=== PATIENT | female | born 1935 | race Caucasian/White ===

== ENCOUNTER → 2018-06-09 11:35 | Outpatient (CLI) | payer MEDICARE, OTHER, SELFPAY ==
[2018-06-09 12:26] LABS: Alanine Aminotransferase 30 IU/L (9-52); Albumin 4.3 g/dL (3.5-5.0); Albumin Globulin Ratio 1.3 (1.0-2.8); Alkaline Phosphatase 60 U/L (38-126); Aspartate Aminotransferase 25 IU/L (14-36); BUN Creatinine Ratio 35.4 (6-22); Bilirubin Total 0.8 mg/dL (0.2-1.3); Blood Urea Nitrogen 46 mg/dL (7-17); Calcium 10.1 mg/dL (8.4-10.2); Carbon Dioxide 32 mmol/L (22-32); Chloride 102 mmol/L (98-107); Estimated Glomerular Filt Rate 39.1 mL/min (>60); Globulin 3.2 g/dL (1.7-4.1); Glucose 110 mg/dL (80-110); HEMOLYSIS < 15 (0-50); Potassium 4.1 mmol/L (3.4-5.1); Sodium 145 mmol/L (137-145); Total Protein 7.5 g/dL (6.3-8.2)
== END ==
PROVIDERS: PCP Internal Medicine; Visit Provider Internal Medicine
DX: I10 Essential (primary) hypertension (principal); N18.2 Chronic kidney disease, stage 2 (mild)
CPT/HCPCS: 36415; 80053

== ENCOUNTER → 2019-06-04 11:04 | Outpatient (CLI) | payer MEDICARE, OTHER, SELFPAY ==
[2019-06-04 11:58] LABS: Alanine Aminotransferase 27 IU/L (9-52); Albumin 4.2 g/dL (3.5-5.0); Albumin Globulin Ratio 1.2 (1.0-2.8); Alkaline Phosphatase 78 U/L (38-126); Aspartate Aminotransferase 27 IU/L (14-36); BUN Creatinine Ratio 38.3 (6-22); Bilirubin Total 0.7 mg/dL (0.2-1.3); Blood Urea Nitrogen 46 mg/dL (7-17); Calcium 9.8 mg/dL (8.4-10.2); Carbon Dioxide 28 mmol/L (22-32); Chloride 102 mmol/L (98-107); Cholesterol 168 mg/dL (140-199); Estimated Glomerular Filt Rate 42.8 mL/min (>60); Globulin 3.4 g/dL (1.7-4.1); Glucose 114 mg/dL (80-110); HDL Cholesterol 46 mg/dL (40-60); HEMOLYSIS < 15 (0-50); LDL Cholesterol Calculated 86 mg/dL (<100); Potassium 3.5 mmol/L (3.4-5.1); Sodium 141 mmol/L (137-145); Total Protein 7.6 g/dL (6.3-8.2); Triglycerides 182 mg/dL (35-150)
== END ==
PROVIDERS: PCP Internal Medicine; Visit Provider Internal Medicine
DX: E78.5 Hyperlipidemia, unspecified (principal); I10 Essential (primary) hypertension; N18.2 Chronic kidney disease, stage 2 (mild)
CPT/HCPCS: 36415; 80053; 80061

== ENCOUNTER → 2021-03-13 11:18 | Outpatient (CLI) | payer MEDICARE, OTHER, SELFPAY ==
[2021-03-13 12:21] LABS: Alanine Aminotransferase 19 IU/L (<35); Albumin 4.2 g/dL (3.5-5.0); Albumin Globulin Ratio 1.3 (1.0-2.8); Alkaline Phosphatase 81 U/L (38-126); Aspartate Aminotransferase 28 IU/L (14-36); BUN Creatinine Ratio 31.9 (6-22); Bilirubin Total 0.7 mg/dL (0.2-1.3); Blood Urea Nitrogen 43 mg/dL (7-17); Carbon Dioxide 29 mmol/L (22-32); Chloride 104 mmol/L (98-107); Cholesterol 198 mg/dL (140-199); Estimated Glomerular Filt Rate 37.2 mL/min (>60); Globulin 3.2 g/dL (1.7-4.1); Glucose 109 mg/dL (80-110); HDL Cholesterol 51 mg/dL (40-60); HEMOLYSIS < 15 (0-50); LDL Cholesterol Calculated 105 mg/dL (<100); Potassium 3.8 mmol/L (3.4-5.1); Sodium 141 mmol/L (137-145); Total Protein 7.4 g/dL (6.3-8.2); Triglycerides 208 mg/dL (35-150)
== END ==
PROVIDERS: PCP Internal Medicine; Referring Provider Internal Medicine; Visit Provider Internal Medicine
DX: E78.5 Hyperlipidemia, unspecified (principal); I10 Essential (primary) hypertension; N18.2 Chronic kidney disease, stage 2 (mild)
CPT/HCPCS: 36415; 80053; 80061

== ENCOUNTER → 2021-08-25 15:31 | Outpatient (CLI) | payer MEDICARE, OTHER, SELFPAY ==
[2021-08-25 17:14] LABS: Erythrocyte Sedimentation Rate 31 MM/HR (0-20)
[2021-08-25 17:30] LABS: Blood Urea Nitrogen 39 mg/dL (7-17); C-Reactive Protein Quant 2.4 mg/dL (<1.0); Calcium 9.6 mg/dL (8.4-10.2); Carbon Dioxide 35 mmol/L (22-32); Chloride 99 mmol/L (98-107); Estimated Glomerular Filt Rate 38.8 mL/min (>60); Glucose 100 mg/dL (80-110); HEMOLYSIS < 15 (0-50); Potassium 3.8 mmol/L (3.4-5.1); Sodium 138 mmol/L (137-145); Uric Acid 7.9 mg/dL (2.5-6.2)
== END ==
PROVIDERS: PCP Internal Medicine; Referring Provider Internal Medicine; Visit Provider Internal Medicine
DX: M10.9 Gout, unspecified (principal)
CPT/HCPCS: 36415; 80048; 84550; 85651; 86140

== ENCOUNTER → 2022-07-09 15:39 | Outpatient (CLI) | payer MEDICARE, OTHER, SELFPAY ==
[2022-07-09 18:25] LABS: Alanine Aminotransferase 37 IU/L (<35); Albumin 4.1 g/dL (3.5-5.0); Alkaline Phosphatase 119 U/L (38-126); Aspartate Aminotransferase 38 IU/L (14-36); BUN Creatinine Ratio 28.7 (6-22); Bilirubin Total 0.7 mg/dL (0.2-1.3); Blood Urea Nitrogen 39 mg/dL (7-17); Calcium 9.1 mg/dL (8.4-10.2); Carbon Dioxide 25 mmol/L (22-32); Chloride 104 mmol/L (98-107); Estimated Glomerular Filt Rate 38 mL/min (>60); Glucose 157 mg/dL (80-110); HEMOLYSIS < 15 (0-50); Potassium 3.4 mmol/L (3.4-5.1); Sodium 140 mmol/L (137-145); Total Protein 7.6 g/dL (6.3-8.2)
[2022-07-09 18:26] LABS: Albumin Globulin Ratio 1.2 (1.0-2.8); Globulin 3.5 g/dL (1.7-4.1)
== END ==
PROVIDERS: PCP Internal Medicine; Referring Provider Internal Medicine; Visit Provider Internal Medicine
DX: E78.5 Hyperlipidemia, unspecified (principal); I10 Essential (primary) hypertension; N18.31 Chronic kidney disease, stage 3a
CPT/HCPCS: 36415; 80053

== ENCOUNTER → 2023-10-13 16:15 | Outpatient (CLI) | payer MEDICARE, OTHER, SELFPAY ==
[2023-10-13 18:22] LABS: Alanine Aminotransferase 25 IU/L (<35); Albumin Globulin Ratio 1.1 (1.0-2.8); Alkaline Phosphatase 160 U/L (38-126); Aspartate Aminotransferase 46 IU/L (14-36); Bilirubin Total 1.6 mg/dL (0.2-1.3); Blood Urea Nitrogen 35 mg/dL (7-17); Calcium 9.7 mg/dL (8.4-10.2); Carbon Dioxide 24 mmol/L (22-32); Chloride 102 mmol/L (98-107); Estimated Glomerular Filt Rate 36 mL/min (>60); Globulin 3.8 g/dL (1.7-4.1); Glucose 95 mg/dL (80-110); HEMOLYSIS < 15 (0-50); Potassium 3.5 mmol/L (3.4-5.1); Sodium 139 mmol/L (137-145); Total Protein 7.8 g/dL (6.3-8.2)
[2023-10-13 18:45] LABS: Free T4, Direct Thyroxine 1.57 ng/dL (0.78-2.19)
[2023-10-13 18:59] LABS: Thyroid Stimulating Hormone 2.21 uIU/mL (0.47-4.68)
== END ==
PROVIDERS: PCP Internal Medicine; Referring Provider Internal Medicine; Visit Provider Internal Medicine
DX: N18.31 Chronic kidney disease, stage 3a (principal); E78.5 Hyperlipidemia, unspecified; E03.9 Hypothyroidism, unspecified; I12.9 Hypertensive chronic kidney disease with stage 1 through stage 4 chronic kidney disease, or unspecified chronic kidney disease
CPT/HCPCS: 36415; 80053; 84439; 84443

== ENCOUNTER 2023-11-05 09:01 | Observation (INO) | payer MEDICARE, OTHER, SELFPAY ==
[2023-11-05] VITALS (20 sets, daily range): BP systolic 98–147; BP diastolic 50–84; PULSE 61–90; RESP 16–56; TEMP 36.1–36.6; O2SAT 90–95; BMI 31.8
--- NOTE | 2023-11-05 09:06 | ED.GENADULT ---
HPI - General Adult General Chief complaint: Back Pain/Injury Stated complaint: upper back pain Time Seen by Provider: 11/05/23 09:06 History of Present Illness HPI narrative: 88-year-old female with history of chronic renal failure, hypertension, hyperlipidemia, osteopenia presents with upper back pain. She states she was shopping yesterday when she developed upper back pain that felt like a muscle strain to her, that has been constant since, worse with movement. She has had similar pain in the past in this area. She denies prior surgeries to this area, any trauma, blood thinners, focal numbness or weakness, any other back pain, any chest pain, any abdominal pain, any flank pain, head or neck pain, shortness of breath, difficulty walking or talking or eating, lightheadedness or passing out, bleeding, or any pain medications taken at home. Grandson brought her. She lives alone. Related Data Home Medications Medication Instructions Recorded Confirmed multivitamin (Multiple Vitamins 1 tab PO QDAY ##0 11/30/16 10/13/23 tablet) vit C 250 mg-vit E 90 mg-zinc 40 1 tab PO ##0 11/30/16 10/13/23 mg-copper 1 [id number] capsule (PreserVision AREDS-2) Previous Rx's Medication Instructions Recorded hydrochlorothiazide 50 mg tablet 50 mg PO DAILY #90 tabs 07/07/23 metoprolol succinate 100 mg 100 mg PO DAILY #90 tabs 09/22/23 tablet,extended release 24 hr furosemide 20 mg tablet 20 mg PO DAILY #90 tabs 10/13/23 potassium chloride 8 mEq 8 meq PO DAILY #90 tabs 10/13/23 tablet,extended release simvastatin 40 mg tablet (Zocor) 20 mg (1/2 x 40 mg) PO Q DAY #45 10/13/23 tabs Allergies Allergy/AdvReac Type Severity Reaction Status Date / Time No Known Drug Allergies Allergy Verified 10/13/23 15:38 Review of Systems Review of Systems Narrative: Constitutional: no fever, no chills Eyes: no visual disturbance, no discharge Ears, Nose, Mouth, Throat: no rhinorrhea, no sore throat Cardiovascular: no chest pain, no palpitations Respiratory: no cough, no shortness of breath Gastrointestinal: no abdominal pain, no vomiting, no diarrhea Genitourinary: no dysuria, no hematuria Musculoskeletal: + back pain, no neck stiffness Skin: no rash, no wound Neurological: no focal weakness, no focal numbness Patient History Medical History Body mass index (BMI) of 40.0 to 44.9 in adult (11/21/17) Chronic renal failure, stage 3a Hearing loss Hyperlipidemia (11/22/11) Hypertension (11/22/11) Macular degeneration Osteopenia (11/22/11) Surgical History History of cataract removal with insertion of prosthetic lens (07/20/11) History of hip replacement (~2010) History of hip replacement (07/18/12) Status post hysterectomy Social History marital status: number of children: 4 household members: none lives independently: Yes caregiver/support person: No housing: house pets and animals: Yes education level: high school occupational status: other 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[employer]: [employer] travel history: over 6 months ago leisure activities: other Smoking Status: Never smoker Tobacco: How many years used: 0 quit status: quit date established second hand exposure: Yes (When first to .) alcohol intake: current substance use type: does not use Smoking Status: Never smoker Exam Narrative Exam Narrative: Const: Appears uncomfortable, non toxic appearing; anxious, remains conversant, pleasant Eyes: PERRLA, EOMI ENT: mucous membranes moist Neck: supple, non-tender Resp: no respiratory distress, clear to auscultation bilaterally Card: regular rate and rhythm, no murmurs Abd: non tender diffusely, no rigidity or rebound or guarding Back: There is focal upper and mid paraspinal T-spine tenderness, with no bony tenderness; no erythema, induration, fluctuance, lesions; no L spine tenderness; no CVA tenderness bilaterally Extrem: no deformities, no swelling bilateral lower extremities, 2+ distal pulses all extremities Neuro: ANOx4, manager risk management 2 through 12 intact, intact sensation and strength all extremities, no clonus bilateral lower extremities, normal coordination Skin: no rash, warm and dry Initial Vital Signs Initial Vital Signs: Vital Signs Pulse Rate 77 11/05/23 09:10 Blood Pressure 118/75 11/05/23 09:10 Pulse Oximetry 92 11/05/23 09:10 Course Course Course Narrative: This presentation is most suggestive of musculoskeletal back pain with strain or sprain, though I have considered broad differential including but not limited to spine fracture, ACS, pneumothorax, vascular dissection among others. Vascular dissection would seem extremely unlikely at this time. Currently, no neurovascular deficits, with epidural hematoma or abscess, spinal cord injury also extremely unlikely clinically. I will still obtain chest x-ray, T-spine x-ray, CBC, CMP, troponin, EKG while treating pain and closely reassessing. I am giving Tylenol, Flexeril, lidocaine patch. EKG shows normal sinus rhythm with right bundle branch block, without recent for comparison, no clear acute ischemia, with QTC prolonged in the setting of bundle-branch block. We will trend this. Repeat EKG shows normal sinus rhythm on my assessment with maintained right bundle branch block, morphology overall similar to prior today, no clear STEMI on my review, with QT prolongation in the setting of bundle-branch block. CBC with neutrophilic leukocytosis, elevated hemoglobin, no thrombocytopenia. No recent for comparison. Leukocytosis could be pain related, in the setting of no clear infection. Troponin within normal limits. Chemistry with mild hypokalemia, some elevation in creatinine though overall in similar range to prior, with elevated BUN and poor p.o. intake possible. EGFR is still above 30. Hyperglycemia present. I do note AST, bilirubin, alk-phos elevations with no ALT elevation and no abdominal pain or tenderness. I am going to obtain CT chest, abdomen, pelvis to assess further, as a biliary cause her pain such as choledocholithiasis, cholecystitis, biliary colic is possible, but so are other causes for pain such as dissection, pneumonia, other intra-abdominal infection. Patient having improvement in pain prior to CT, appearing more comfortable. Chest x-ray and T-spine x-ray without clear findings to explain symptoms per Radiology reads. US abd also obtained and shows: FINDINGS: Liver: Liver is normal in size and homogeneous in echotexture. Hyperechoic nodule in the right hepatic lobe measures 2.3 cm, probable hemangioma. Gallbladder: No gallstones. No wall thickening. No pericholecystic edema. Negative sonographic Zhao's sign. Biliary ducts: Intrahepatic bile ducts are non-dilated. Extrahepatic bile duct caliber is within normal limits. Financial Advisor Trainee overestimated CBD diameter on images. Pancreas: Visualized portions of the pancreas are sonographically normal. Miscellaneous: No free abdominal fluid. IMPRESSION: Probable small right hepatic hemangioma. Otherwise unremarkable ultrasound of the right upper quadrant. No cholelithiasis. Approved by: Mayur Vieira M.D. on 11/05/2023 at 10:[address] imaging below, which I agree with on my independent review: FINDINGS: Chest: Cardiovascular: Heart size is enlarged, and the right atrium and ventricle is dilated. Reflux of contrast into the intrahepatic IVC as well as IVC distension are all consistent with right heart failure. Dense coronary artery vascular calcification Lungs and pleural spaces: Patchy bilateral geographic ground-glass opacity consistent with pulmonary edema. No pleural effusions Lymph nodes: No mediastinal, hilar or axillary adenopathy. Mediastinum: Unremarkable. No hiatal hernia. Thyroid within normal limits. Chest Wall and Bones: Unremarkable. No acute fracture. Abdomen and Pelvis: Liver: Normal in size and attenuation. No contour deformity present. Biliary system: No calcified cholelithiasis or pericholecystic inflammation. No intra or extrahepatic bile duct dilatation. Pancreas: Unremarkable without mass or inflammation evident. Spleen: Normal in size and density. Adrenals: Normal morphology and density. Reproductive system: Unremarkable as visualized. Urinary system: Normal renal size and attenuation. Left peripelvic cysts No renal calculi, hydronephrosis, or solid mass present. Urinary bladder unremarkable. Gastrointestinal system: The bowel is unremarkable with no evidence of bowel obstruction or inflammation. The stomach appears unremarkable. Multiple diverticula arise from the sigmoid colon without evidence of diverticulitis. Appendix: No findings to suggest acute appendicitis. Lymph nodes: No mesenteric or retroperitoneal adenopathy. Peritoneal spaces: No free air. No free fluid. Vasculature: Ectatic abdominal aorta with diffuse atherosclerotic vascular calcification present. Noncalcified mural plaque in the suprarenal aorta noted with plaque ulceration. Abdominal wall: Abdominal wall intact without evidence of ventral or inguinal hernias. Musculoskeletal: Normal bone mineralization. Degenerative disc disease and arthropathy noted in lower lumbar spine. No acute fractures. Bilateral hip prosthesis limits assessment of several images in the pelvis IMPRESSION: 1. Cardiomegaly with evidence of right heart failure and pulmonary edema. No pleural effusion 2. Unstable appearing suprarenal aortic mural atherosclerotic plaque with irregular ulceration Approved by: Mayur Vieira M.D. on 11/05/2023 at 10:55 Repeat troponin reassuring. At this juncture, while musculoskeletal cause is possible for pain, on my reassessment patient's pain now seems less defined. She also seems more dyspneic, with evidence of pulmonary edema and right heart failure as above, along with evidence of CAD. This is concerning to me for potential ACS. I am giving aspirin and Lasix and discussed with patient my recommendation for admission for more assessment. I spoke with Dr. Howe, reviewing case on phone. Per our discussion, I will speak with Cardiology then update her. I spoke with Dr. Norwood of Cardiology [facility], reviewing case on phone. She recommends switching HCTZ to amlodipine or isosorbide to see if this helps with the pain. I will trial NTG here. She agrees with admission and reassessment. Echo would be reasonable. She is comfortable with us admitting patient to [facility]. I spoke with Dr. Howe who kindly accepted patient. Patient being admitted in stable condition. TTE ordered. Admitting to [facility] obs. Orders Ordered: ED Orders 11/05/23 09:15 XR chest 1V Stat XR thoracic spine 2V Stat 11/05/23 09:18 EKG-12 Lead Stat 11/05/23 09:20 CBC Auto Diff [Complete Blood Count AUTO DIFF] Stat CMP [Comprehensive Metabolic Panel] Stat Troponin I Stat 11/05/23 10:04 EKG-12 Lead Stat 11/05/23 10:05 CT angio chest abdomen pelvis Stat 11/05/23 11:04 US abdomen limited Stat 11/05/23 11:38 Troponin I Stat 11/05/23 12:49 EC echo limited Stat Discontinued Medications Acetaminophen (Acetaminophen 325 Mg Tablet) 975 mg PO NOW ONE Stop: 11/05/23 09:16 Last Admin: 11/05/23 09:22 Dose: 975 mg Documented By: CTS Aspirin (Aspirin 81 Mg Chew Tab) 324 mg PO NOW ONE Stop: 11/05/23 12:23 Last Admin: 11/05/23 12:32 Dose: 324 mg Documented By: BS Cyclobenzaprine HCl (Cyclobenzaprine 10 Mg Tablet) 10 mg PO NOW ONE Stop: 11/05/23 09:16 Last Admin: 11/05/23 09:22 Dose: 10 mg Documented By: CTS Furosemide (Furosemide 40 Mg/4 Ml Vial) 40 mg IV NOW ONE Stop: 11/05/23 12:23 Last Admin: 11/05/23 12:32 Dose: 20 mg Documented By: BS Lidocaine (Lidocaine 5% Patch) 1 each TOP NOW ONE Stop: 11/05/23 09:16 Last Admin: 11/05/23 09:22 Dose: 1 each Documented By: CTS Nitroglycerin (Nitroglycerin 0.4 Mg Sl Tab) 0.4 mg SL NOW ONE Stop: 11/05/23 12:44 Last Admin: 11/05/23 12:55 Dose: 0.4 mg Vital Signs Vital signs: Vital Signs - 8 hr 11/05/23 09:10 11/05/23 09:10 11/05/23 09:11 Temperature 97.9 F Pulse Rate 77 78 Respiratory Rate 16 Blood Pressure 118/75 118/75 Pulse Oximetry 92 94 Oxygen Delivery Method Room Air 11/05/23 09:38 11/05/23 09:40 11/05/23 09:40 Temperature Pulse Rate 68 69 Respiratory Rate Blood Pressure 140/68 Pulse Oximetry 92 92 Oxygen Delivery Method 11/05/23 10:00 11/05/23 10:00 11/05/23 10:49 Temperature Pulse Rate 63 63 Respiratory Rate Blood Pressure 129/65 Pulse Oximetry 92 93 Oxygen Delivery Method 11/05/23 10:50 11/05/23 10:50 11/05/23 12:55 Temperature Pulse Rate 65 65 Respiratory Rate Blood Pressure 121/77 144/76 H Pulse Oximetry 92 Oxygen Delivery Method Medical Decision Making Lab Data 11/05/23 09:20 11/05/23 09:20 Labs: Lab Results 11/05/23 11/05/23 Range/Units 09:20 11:38 WBC 12.7 H (4.5-11.0) X10^3/uL RBC 5.49 H (4.0-5.2) X10^6/uL Hgb 17.5 H (12.0-16.0) g/dL Hct 52.2 H (36-46) % MCV 95.2 (80-100) fL MCH 31.9 (26-34) PG MCHC 33.5 (30-36) % RDW 15.2 H (11.6-14.8) % Plt Count 161 (150-400) X10^3/uL Neut % (Auto) 81.6 H (50-75) % Lymph % (Auto) 6.8 L (25-40) % Posey % (Auto) 11.1 (3-14) % Eos % (Auto) 0.1 L (2-4) % Baso % (Auto) 0.4 (0-2) % Neut # (Auto) 93254 H (7980-5944) /uL Lymph # (Auto) 900 L (0727-5575) /uL Posey # (Auto) 1400 H (0-900) /uL Eos # (Auto) 0 (0-450) /uL Baso # (Auto) 0 (0-100) /uL Sodium 137 (137-145) mmol/L Potassium 3.3 L (3.4-5.1) mmol/L Chloride 100 (98-107) mmol/L Carbon Dioxide 28 (22-32) mmol/L BUN 48 H (7-17) mg/dL Creatinine 1.55 H (0.52-1.04) mg/dL Estimated GFR 32 L (>60) mL/min BUN/Creatinine Ratio 31.0 H (6-22) Glucose 214 H (80-110) mg/dL Calcium 10.1 (8.4-10.2) mg/dL Total Bilirubin 2.4 H (0.2-1.3) mg/dL AST 51 H (14-36) IU/L ALT 34 (<35) IU/L Alkaline Phosphatase 155 H (38-126) U/L Troponin I 0.024 0.023 (0.01-0.034) ng/mL Total Protein 8.5 H (6.3-8.2) g/dL Albumin 4.3 (3.5-5.0) g/dL Globulin 4.2 H (1.7-4.1) g/dL Albumin/Globulin Ratio 1.0 (1.0-2.8) Discharge Plan Departure Patient Disposition: Admitted As Inpatient Clinical Impression: Back pain Admit Date/Time: 11/05/23 12:55 Admit Provider: Christiane Rosales
--- NOTE | 2023-11-05 09:15 | DI.RAD.S_ITS ---
PROCEDURE: XR CHEST 1V INDICATIONS: upper back pain TECHNIQUE: One view of the chest was acquired. COMPARISON: None. FINDINGS: Surgical changes and devices: None. Lungs and pleura: Lungs are clear. No pleural effusions or pneumothorax. Mediastinum: Heart size enlarged. Moderate vascular congestion noted. Bones and chest wall: No suspicious bony lesions. Overlying soft tissues appear unremarkable. IMPRESSION: Cardiomegaly and moderate vascular congestion Approved by: Mayur Vieira M.D. on 11/05/2023 at 9:19
--- NOTE | 2023-11-05 09:15 | DI.RAD.S_ITS ---
PROCEDURE: XR THORACIC SPINE 2V INDICATIONS: upper back pain TECHNIQUE: 3 views of the thoracic spine were acquired. COMPARISON: None. FINDINGS: Bones: No fractures or dislocations. No suspicious bony lesions. 12 pairs of ribs are noted, and appear intact where visualized. Soft tissues: No paravertebral stripe thickening. IMPRESSION: No acute bony abnormality. Approved by: Mayur Vieira M.D. on 11/05/2023 at 9:20
[2023-11-05] MEDS: ACETAMINOPHEN 325 MG TABLET 975 MG PO (09:22)
[2023-11-05] MEDS: LIDOCAINE 5% PATCH 1 EACH TOP (09:22)
[2023-11-05] MEDS: CYCLOBENZAPRINE 10 MG TABLET PO (09:22)
[2023-11-05 09:24] LABS: Add Manual Diff / Slide Review NO; Basophils Absolute Auto 0 /uL (0-100); Basophils Percent Auto 0.4 % (0-2); Eosinophils Absolute Auto 0 /uL (0-450); Eosinophils Percent Auto 0.1 % (2-4); Hematocrit 52.2 % (36-46); Hemoglobin 17.5 g/dL (12.0-16.0); Lymphocytes Absolute Auto 900 /uL (1100-4500); Lymphocytes Percent Auto 6.8 % (25-40); Mean Corpuscular HGB Conc 33.5 % (30-36); Mean Corpuscular Hemoglobin 31.9 PG (26-34); Mean Corpuscular Volume 95.2 fL (80-100); Monocytes Absolute Auto 1400 /uL (0-900); Monocytes Percent Auto 11.1 % (3-14); Neutrophils Absolute Auto 10300 /uL (1500-7000); Neutrophils Percent Auto 81.6 % (50-75); Platelet Count 161 X10^3/uL (150-400); Red Blood Cell Count 5.49 X10^6/uL (4.0-5.2); Red Cell Distribution Width 15.2 % (11.6-14.8); White Blood Cell Count 12.7 X10^3/uL (4.5-11.0)
[2023-11-05 09:40] LABS: Alanine Aminotransferase 34 IU/L (<35); Albumin 4.3 g/dL (3.5-5.0); Alkaline Phosphatase 155 U/L (38-126); Aspartate Aminotransferase 51 IU/L (14-36); Bilirubin Total 2.4 mg/dL (0.2-1.3); Blood Urea Nitrogen 48 mg/dL (7-17); Calcium 10.1 mg/dL (8.4-10.2); Carbon Dioxide 28 mmol/L (22-32); Chloride 100 mmol/L (98-107); Estimated Glomerular Filt Rate 32 mL/min (>60); Globulin 4.2 g/dL (1.7-4.1); Glucose 214 mg/dL (80-110); HEMOLYSIS < 15 (0-50); Potassium 3.3 mmol/L (3.4-5.1); Sodium 137 mmol/L (137-145); Total Protein 8.5 g/dL (6.3-8.2)
[2023-11-05 09:51] LABS: Troponin I 0.024 ng/mL (0.01-0.034)
--- NOTE | 2023-11-05 10:05 | DI.CT.S_ITS ---
PROCEDURE: CT ANGIO CHEST ABDOMEN PELVIS INDICATIONS: upper back pain, assess for dissection, also biliary causes TECHNIQUE: Precontrast 5 mm thick sections acquired from the lung apices to the iliac crests. After the administration of intravenous contrast, 2.5 mm thick sections again acquired from the lung apices to the iliac crests. Maximum intensity projection (MIP) oblique sagittal and coronal reformats were then acquired. For radiation dose reduction, the following was used: automated exposure control. COMPARISON: None. FINDINGS: Chest: Cardiovascular: Heart size is enlarged, and the right atrium and ventricle is dilated. Reflux of contrast into the intrahepatic IVC as well as IVC distension are all consistent with right heart failure. Dense coronary artery vascular calcification Lungs and pleural spaces: Patchy bilateral geographic ground-glass opacity consistent with pulmonary edema. No pleural effusions Lymph nodes: No mediastinal, hilar or axillary adenopathy. Mediastinum: Unremarkable. No hiatal hernia. Thyroid within normal limits. Chest Wall and Bones: Unremarkable. No acute fracture. Abdomen and Pelvis: Liver: Normal in size and attenuation. No contour deformity present. Biliary system: No calcified cholelithiasis or pericholecystic inflammation. No intra or extrahepatic bile duct dilatation. Pancreas: Unremarkable without mass or inflammation evident. Spleen: Normal in size and density. Adrenals: Normal morphology and density. Reproductive system: Unremarkable as visualized. Urinary system: Normal renal size and attenuation. Left peripelvic cysts No renal calculi, hydronephrosis, or solid mass present. Urinary bladder unremarkable. Gastrointestinal system: The bowel is unremarkable with no evidence of bowel obstruction or inflammation. The stomach appears unremarkable. Multiple diverticula arise from the sigmoid colon without evidence of diverticulitis. Appendix: No findings to suggest acute appendicitis. Lymph nodes: No mesenteric or retroperitoneal adenopathy. Peritoneal spaces: No free air. No free fluid. Vasculature: Ectatic abdominal aorta with diffuse atherosclerotic vascular calcification present. Noncalcified mural plaque in the suprarenal aorta noted with plaque ulceration. Abdominal wall: Abdominal wall intact without evidence of ventral or inguinal hernias. Musculoskeletal: Normal bone mineralization. Degenerative disc disease and arthropathy noted in lower lumbar spine. No acute fractures. Bilateral hip prosthesis limits assessment of several images in the pelvis IMPRESSION: 1. Cardiomegaly with evidence of right heart failure and pulmonary edema. No pleural effusion 2. Unstable appearing suprarenal aortic mural atherosclerotic plaque with irregular ulceration Approved by: Mayur Vieira M.D. on 11/05/2023 at 10:55
--- NOTE | 2023-11-05 11:04 | DI.US.S_ITS ---
PROCEDURE: US ABDOMEN LIMITED INDICATIONS: back pain TECHNIQUE: Real-time scanning was performed of the abdominal and retroperitoneal organs, with image documentation. COMPARISON: [facility], CT, CT ANGIO CHEST ABDOMEN PELVIS, 11/05/2023, 10:14. FINDINGS: Liver: Liver is normal in size and homogeneous in echotexture. Hyperechoic nodule in the right hepatic lobe measures 2.3 cm, probable hemangioma. Gallbladder: No gallstones. No wall thickening. No pericholecystic edema. Negative sonographic Zhao's sign. Biliary ducts: Intrahepatic bile ducts are non-dilated. Extrahepatic bile duct caliber is within normal limits. Industrial Nurse overestimated CBD diameter on images. Pancreas: Visualized portions of the pancreas are sonographically normal. Miscellaneous: No free abdominal fluid. IMPRESSION: Probable small right hepatic hemangioma. Otherwise unremarkable ultrasound of the right upper quadrant. No cholelithiasis. Approved by: Mayur Vieira M.D. on 11/05/2023 at 10:42
[2023-11-05 12:15] LABS: Troponin I 0.023 ng/mL (0.01-0.034)
[2023-11-05] MEDS: FUROSEMIDE 40 MG/4 ML VIAL IV (12:32)
[2023-11-05] MEDS: ASPIRIN 81 MG CHEW TAB 324 MG PO (12:32)
[2023-11-05] MEDS: NITROGLYCERIN 0.4 MG SL TAB SL (12:55)
--- NOTE | 2023-11-05 13:24 | P.HP_ITS ---
History of Present Illness History of Present Illness Date Patient Seen: 11/05/23 Time Patient Seen: 13:24 Date of Onset of Symptoms: 11/04/23 Chief complaint: upper back pain Narrative: 88 yo F with hx of CKD stage 3a, HTN and HLD presenting initially for upper back pain that started spontaneously yesterday while grocery shopping. Initially it felt like a muscle strain to her. There was no injury or trauma that she can remember. This has persisted since then. She has had similar pain in this spot before. No numbness. weakness, chest pain, abd pain. She has not had any chest pain or shortness of breath, her only complaint today is her back pain. In the ER option to discharge home was discussed vs admission for further work up and pt prefers admission. Cardiology was consulted and recommended admission for echo and transition to amlodipine for HTN. [facility] Medical History Body mass index (BMI) of 40.0 to 44.9 in adult (11/21/17) Chronic renal failure, stage 3a Hearing loss Hyperlipidemia (11/22/11) Hypertension (11/22/11) Macular degeneration Osteopenia (11/22/11) Surgical History History of cataract removal with insertion of prosthetic lens (07/20/11) History of hip replacement (~2010) History of hip replacement (07/18/12) Status post hysterectomy Social History marital status: number of children: 4 household members: none lives independently: Yes caregiver/support person: No housing: house pets and animals: Yes education level: high school occupational status: other 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carmela/mormonism: [employer] travel history: over 6 months ago leisure activities: other Smoking Status: Never smoker Tobacco: How many years used: 0 quit status: quit date established second hand exposure: Yes (When first to .) alcohol intake: current substance use type: does not use Meds Home Medications and Allergies Home Medications Medication Instructions Recorded Confirmed Type multivitamin (Multiple Vitamins 1 tab PO QDAY ##0 11/30/16 10/13/23 History tablet) vit C 250 mg-vit E 90 mg-zinc 40 1 tab PO ##0 11/30/16 10/13/23 History mg-copper 1 [id number] capsule (PreserVision AREDS-2) hydrochlorothiazide 50 mg tablet 50 mg PO DAILY #90 tabs 07/07/23 10/13/23 Rx metoprolol succinate 100 mg 100 mg PO DAILY #90 tabs 09/22/23 10/13/23 Rx tablet,extended release 24 hr furosemide 20 mg tablet 20 mg PO DAILY #90 tabs 10/13/23 10/13/23 Rx potassium chloride 8 mEq 8 meq PO DAILY #90 tabs 10/13/23 10/13/23 Rx tablet,extended release simvastatin 40 mg tablet (Zocor) 20 mg (1/2 x 40 mg) PO Q DAY #45 10/13/23 10/13/23 Rx tabs Allergies Allergy/AdvReac Type Severity Reaction Status Date / Time No Known Drug Allergies Allergy Verified 10/13/23 15:38 Review of Systems Review of Systems Narrative: Deneis chest pain and SOB ENdorses upper back pain Denies fevers Denies leg swelling (notes that legs are smaller than than usually are right now) No HODGE Exam Vital Signs (past 8 hours): - 11/05/23 09:10 11/05/23 09:10 11/05/23 09:11 Temperature 97.9 F Pulse Rate 77 78 Respiratory Rate 16 Blood Pressure 118/75 118/75 Pulse Oximetry 92 94 Oxygen Delivery Method Room Air 11/05/23 09:38 11/05/23 09:40 11/05/23 09:40 Temperature Pulse Rate 68 69 Respiratory Rate Blood Pressure 140/68 Pulse Oximetry 92 92 Oxygen Delivery Method 11/05/23 10:00 11/05/23 10:00 11/05/23 10:49 Temperature Pulse Rate 63 63 Respiratory Rate Blood Pressure 129/65 Pulse Oximetry 92 93 Oxygen Delivery Method 11/05/23 10:50 11/05/23 10:50 11/05/23 11:00 Temperature Pulse Rate 65 66 Respiratory Rate 56 H Blood Pressure 121/77 Pulse Oximetry 92 91 Oxygen Delivery Method 11/05/23 11:00 11/05/23 11:30 11/05/23 11:30 Temperature Pulse Rate 63 Respiratory Rate 39 H Blood Pressure 127/84 124/75 Pulse Oximetry 91 Oxygen Delivery Method 11/05/23 12:00 11/05/23 12:01 11/05/23 12:01 Temperature Pulse Rate 64 64 Respiratory Rate 37 H 32 H Blood Pressure 98/53 L Pulse Oximetry 91 91 Oxygen Delivery Method 11/05/23 12:30 11/05/23 12:30 11/05/23 12:55 Temperature Pulse Rate 64 65 Respiratory Rate 33 H Blood Pressure 106/62 144/76 H Pulse Oximetry 91 Oxygen Delivery Method 11/05/23 12:55 11/05/23 12:55 11/05/23 13:00 Temperature Pulse Rate 65 66 Respiratory Rate 36 H 34 H Blood Pressure 144/76 H Pulse Oximetry 91 93 Oxygen Delivery Method Room Air 11/05/23 13:00 Temperature Pulse Rate Respiratory Rate Blood Pressure 147/82 H Pulse Oximetry Oxygen Delivery Method Oxygen Delivery Method Room Air Narrative Exam Narrative: GEN: Healthy appearing, well-developed, NAD. Has difficulty hearing but when speaking loudly able to carry conversation without difficulty PSYCH: Good Judgment. AOx3. Normal memory, mood, and affect HEENT: -Head: NC/AT -Eyes: No discharge or redness -Nose: Normal nares. -Mouth and throat: MMM CV: warm and well perfused, RRR LUNGS: CTAB, no w/r/c. ABD: Soft, NT/ND, NBS, no masses or organomegaly. SKIN: Warm, well perfused. No skin rashes or abnormal lesions MSK: Normal gait. No deformities EXT: No clubbing, cyanosis, or edema NEURO: Ambulating with no limitations. No focal deficits Objective Labs 11/05/23 09:20 11/05/23 09:20 Labs: Laboratory Results - last 24 hr 11/05/23 11/05/23 09:20 11:38 WBC 12.7 H RBC 5.49 H Hgb 17.5 H Hct 52.2 H MCV 95.2 MCH 31.9 MCHC 33.5 RDW 15.2 H Plt Count 161 Neut % (Auto) 81.6 H Lymph % (Auto) 6.8 L [place] % (Auto) 11.1 Eos % (Auto) 0.1 L Baso % (Auto) 0.4 Neut # (Auto) 59748 H Lymph # (Auto) 900 L [place] # (Auto) 1400 H Eos # (Auto) 0 Baso # (Auto) 0 Sodium 137 Potassium 3.3 L Chloride 100 Carbon Dioxide 28 BUN 48 H Creatinine 1.55 H Estimated GFR 32 L BUN/Creatinine Ratio 31.0 H Glucose 214 H Calcium 10.1 Total Bilirubin 2.4 H AST 51 H ALT 34 Alkaline Phosphatase 155 H Troponin I 0.024 0.023 Total Protein 8.5 H Albumin 4.3 Globulin 4.2 H Albumin/Globulin Ratio 1.0 Assessment & Plan Assessment and plan (1) Back pain: Qualifiers: Back pain location: thoracic back pain Chronicity: acute Back pain laterality: midline Qualified Code(s): M54.6 - Pain in thoracic spine Status: Acute (2) Chronic renal failure, stage 3a: Status: Chronic (3) Hypertension: Qualifiers: Hypertension type: primary hypertension Qualified Code(s): I10 - Essential (primary) hypertension Status: Chronic (4) Hyperlipidemia: Qualifiers: Hyperlipidemia type: mixed hyperlipidemia Qualified Code(s): E78.2 - Mixed hyperlipidemia Status: Chronic (5) CAD (coronary artery disease): Status: Acute Plan 88 yo F with hx of CKD, HLD and HTN presenting with back pain and incidentally found to have CXR findings consistent with right sided heart failure and dense coronary artery plaques. Cardiology was consulted and recommended admission for echo and work up. 1. Suprarenal Aortic plaque: irregular and unstable appearing + dense coronary artery calcifications: Will admit for work up of possible right heart failure as below + management optimzation of CAD. Troponins negative. Was given ASA and Lasix in ER. - COntinue simvastatin 40mg daily 2. Cardiomegaly on CT: evidence of right heart failure. - ECHO ordered 3. HTN: Per cardiology recs, switch HCTZ to amlodipine. Cardiology recommending admission and observation - Nitro given in ER, will await response - plan to transition to amlodipine + dc HCTZ - Continue MEtoprolol 100mg daily + Lasix 20mg daily 4. Upper back muscle strain: XR T spine normal and CXR nml. work up for causes of back pain largely normal, suspect that this is related to muscular strain. WAs given Flexeril 10mg once for this with some improvement as well as tylenol 975mg and a lidocaine patch 5. Leg swelling: previously noted by PCP and attributed to sedentary lifestyle and BMI + age. status is chronic and improved from previous per pt. - continue lasix DVT ppx: SCDs, Charbel of 3 Code: partial code, ok with CPR, no intubation. POLST on file per pt
--- NOTE | 2023-11-05 14:17 | PC.NURSE ---
Day shift: In room from ED at approx 1405. VS WNL. RA 98%. Pt asleep and family in room for support. Bed alarm is on. Will be high fall risk for now. Call light in reach and door to room is open.
[2023-11-05 14:48] LABS: Magnesium 1.5 mg/dL (1.6-2.3)
[2023-11-05] MEDS: POTASSIUM CHLORIDE 20 MEQ TAB 40 MEQ PO (15:58)
[2023-11-05] MEDS: MAGNESIUM CHLORIDE 64 MG TABLET 128 MG PO (15:58)
[2023-11-06] MEDS: ACETAMINOPHEN 325 MG TABLET 650 MG PO ×2 (00:08→08:51)
[2023-11-06] MEDS: CYCLOBENZAPRINE 10 MG TABLET PO (00:09)
[2023-11-06 00:16] VITALS: BP 137/97; PULSE 96; RESP 17; TEMP 36.6; O2SAT 96
[2023-11-06 04:00] VITALS: BP 138/87; PULSE 65; RESP 18; TEMP 36.2; O2SAT 92
[2023-11-06 08:00] VITALS: BP 123/90; PULSE 68; RESP 16; TEMP 36.1; O2SAT 93
[2023-11-06] MEDS: POTASSIUM CHLORIDE 10 MEQ TAB PO (08:51)
--- NOTE | 2023-11-06 08:59 | DI.ECHO.S_ITS ---
[facility] +---------+ : : [address] : : : : [place], : : : : [place] [address] : : : : Phone: [phone] + [facility]-9466 Echocardiogram Report + + :Name: STEPHANIE CRAWFORD Study Date: 11/06/2023 Height: 63 in : :[facility] ReadingLocation: Weight: 180 lb: : Gender: Female BSA: 1.8 m2 : :: 1935 Age: 88 yrs BP: 99/50 mmHg: :Reason For Study: Right heart failure : : Performed By: Tara Abad : :Referring: SARWAT DELGADILLO E : + + Interpretation Summary The left ventricular cavity is small. There is moderate concentric left ventricular hypertrophy. The ejection fraction is estimated to be 55-60%. The interventricular septum is flattened, consistent with a right ventricular pressure/volume condition. The right ventricle is severely dilated. Right ventricular systolic function is severely reduced. There is severe biatrial enlargement. There is mild to moderate mitral regurgitation. There is severe tricuspid regurgitation. Pulmonary artery systolic pressure is underestimated due to the severity of TR. The IVC is dilated (diameter is greater than 2.1 cm) and it collapses less than 50% with a sniff. This suggests a high right atrial pressure of 15 mm Hg. Procedure: A two-dimensional transthoracic echocardiogram with color flow and Doppler was performed. The study quality was technically adequate. The heart rate ranged between 68-72 bpm during the study. Left Ventricle: The left ventricular cavity is small. There is moderate concentric left ventricular hypertrophy. Left ventricular systolic function is normal. The ejection fraction is estimated to be 55-60%. The interventricular septum is flattened, consistent with a right ventricular pressure/volume condition. Diastolic function could not be accurately assessed due to unobtainable data. Right Ventricle: The right ventricle is severely dilated. Right ventricular systolic function is severely reduced. Atria: There is severe biatrial enlargement. The interatrial septum grossly appears intact with no obvious evidence for an atrial septal defect. Mitral Valve: The mitral valve leaflets appear mildly thickened, but open well. There is mild to moderate mitral regurgitation. Aortic Valve: The aortic valve is trileaflet. The aortic valve opens well. There is no aortic valve stenosis. No aortic regurgitation is present. Tricuspid Valve: The tricuspid valve leaflets are thin and pliable. The tricuspid annulus is dilated. There is severe tricuspid regurgitation. Pulmonary artery systolic pressure is underestimated due to the severity of TR. Pulmonic Valve: The pulmonic valve is not well seen, but is grossly normal. Great Vessels: The aortic root is normal size. The dimensions of the ascending aorta are normal. The aortic arch is normal in size. The IVC is dilated (diameter is greater than 2.1 cm) and it collapses less than 50% with a sniff. This suggests a high right atrial pressure of 15 mm Hg. Pericardium/ Pleura There is no pericardial effusion. There is no pleural effusion. MMode/2D Measurements & Calculations LVIDd: 3.8 cm AoV Openin.4 cm LVIDs: 2.0 cm LVOT diam: 1.9 cm IVSd: 1.5 cm Ao root diam: 3.2 cm LVPWd: 1.4 cm Ao Arch Diam (Prox Trans): 2.6 cm LV concepcion. diameter/BSA (cm/m^2): 2.1 LV sys. diameter/BSA (cm/m^2): 1.1 FS: 48.0 % EPSS: 0.49 cm LA A2 area: 23.5 cm2 RA long axis: 7.2 cm LA A4 area: 27.5 cm2 RA area: 29.3 cm2 LA length (vol): 5.9 cm RA vol: 101.7 ml LA vol: 92.7 ml RA : 55.0 ml/m2 LA vol index: 50.2 ml/m2 RVD1 (basal): 4.3 cm IVC diam: 3.2 cm Doppler Measurements & Calculations Ao V2 max: 107.1 cm/sec LVOT Max Rc: 57.4 cm/sec Ao V2 mean: 63.5 cm/sec LV V1 max P.3 mmHg Ao V2 VTI: 16.2 cm LV V1 VTI: 10.9 cm Ao max P.6 mmHg Ao mean P.0 mmHg NORI(I,D): 2.0 cm2 MV E max rc: 106.9 cm/sec NORI(V,D): 1.6 cm2 MV A max rc: 21.9 cm/sec NORI indexed to BSA (cm^2/m^2): 1.1 MV E/A: 4.9 sev ratio: 0.67 MV dec time: 0.12 sec TR max rc: 247.0 cm/sec TR max P.4 mmHg PA V2 max: 54.0 cm/sec SV(LVOT): 31.7 ml PA V2 mean: 30.5 cm/sec PA mean P.48 mmHg PA pr(Accel): 22.5 mmHg Reading Physician:01:00 PM
--- NOTE | 2023-11-06 09:05 | P.PN_ITS ---
Exam Vital Signs (past 8 hours): - 11/06/23 04:00 11/06/23 08:00 Temperature 97.1 F L 97.0 F L Pulse Rate 65 68 Respiratory Rate 18 16 Blood Pressure 138/87 123/90 Pulse Oximetry 92 93 Oxygen Flow Rate 0 0 Oxygen Delivery Method Room Air Oxygen Flow Rate 0 Narrative Exam Narrative: GEN: Healthy appearing, well-developed, NAD. Has difficulty hearing but when speaking loudly able to carry conversation without difficulty PSYCH: Good Judgment. AOx3. Normal memory, mood, and affect HEENT: -Head: NC/AT -Eyes: No discharge or redness -Nose: Normal nares. -Mouth and throat: MMM CV: warm and well perfused, RRR, soft murmur heard at LUSB LUNGS: CTAB, no w/r/c. ABD: Soft, NT/ND, NBS, no masses or organomegaly. SKIN: Warm, well perfused. No skin rashes or abnormal lesions MSK: Normal gait. No deformities EXT: No clubbing, cyanosis, or edema NEURO: Ambulating with no limitations. No focal deficits Objective Labs 11/05/23 09:20 11/05/23 09:20 Labs: Laboratory Results - last 24 hr 11/05/23 11/05/23 09:20 11:38 WBC 12.7 H RBC 5.49 H Hgb 17.5 H Hct 52.2 H MCV 95.2 MCH 31.9 MCHC 33.5 RDW 15.2 H Plt Count 161 Neut % (Auto) 81.6 H Lymph % (Auto) 6.8 L [place] % (Auto) 11.1 Eos % (Auto) 0.1 L Baso % (Auto) 0.4 Neut # (Auto) 06151 H Lymph # (Auto) 900 L [place] # (Auto) 1400 H Eos # (Auto) 0 Baso # (Auto) 0 Sodium 137 Potassium 3.3 L Chloride 100 Carbon Dioxide 28 BUN 48 H Creatinine 1.55 H Estimated GFR 32 L BUN/Creatinine Ratio 31.0 H Glucose 214 H Calcium 10.1 Magnesium 1.5 L Total Bilirubin 2.4 H AST 51 H ALT 34 Alkaline Phosphatase 155 H Troponin I 0.024 0.023 Total Protein 8.5 H Albumin 4.3 Globulin 4.2 H Albumin/Globulin Ratio 1.0 [facility] Medical History Body mass index (BMI) of 40.0 to 44.9 in adult (11/21/17) Chronic renal failure, stage 3a Hearing loss Hyperlipidemia (11/22/11) Hypertension (11/22/11) Macular degeneration Osteopenia (11/22/11) Surgical History History of cataract removal with insertion of prosthetic lens (07/20/11) History of hip replacement (~2010) History of hip replacement (07/18/12) Status post hysterectomy Social History marital status: number of children: 4 household members: none lives independently: Yes caregiver/support person: No housing: house pets and animals: Yes education level: high school occupational status: other 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carmela/mu-ism: [employer] travel history: over 6 months ago leisure activities: other Smoking Status: Never smoker Tobacco: How many years used: 0 quit status: quit date established second hand exposure: Yes (When first to .) alcohol intake: current substance use type: does not use Assessment & Plan Assessment and plan (1) CAD (coronary artery disease): Qualifiers: Coronary Disease-Associated Artery/Lesion type: unspecified vessel or lesion type [place] vs. transplanted heart: [place] heart Associated angina: w [facility] angina Qualified Code(s): I25.10 - Atherosclerotic heart disease of [place] coronary artery without angina pectoris Status: Acute (2) Back pain: Qualifiers: Back pain laterality: midline Back pain location: thoracic back pain C hronicity: acute Qualified Code(s): M54.6 - Pain in thoracic spine Status: Acute (3) Chronic renal failure, stage 3a: Status: Chronic (4) Hypertension: Qualifiers: Hypertension type: primary hypertension Qualified Code(s): I10 - Essential (primary) hypertension Status: Chronic (5) Hyperlipidemia: Qualifiers: Hyperlipidemia type: mixed hyperlipidemia Qualified Code(s): E78.2 - Mixed hyperlipidemia Status: Chronic Plan 88 yo F with hx of CKD, HLD and HTN presenting with back pain and incidentally found to have CXR findings consistent with right sided heart failure and dense coronary artery plaques. Cardiology was consulted and recommended admission for echo and work up. 1. Suprarenal Aortic plaque: irregular and unstable appearing + dense coronary artery calcifications: Will admit for work up of possible right heart failure as below + management optimzation of CAD. Troponins negative. Denies any chest pain or SOB, doing well this morning and wanting to go home - Continue simvastatin 40mg daily 2. Cardiomegaly on CT: evidence of right heart failure. - ECHO ordered, will be done this AM. D/c planning per this echo 3. HTN: Per cardiology recs, switch HCTZ to amlodipine. BPs soft overnight and currently, suspect due to nitro + lasix given in ER yesterday afternoon. Bp 123/90 this AM, so will restart Metoprolol but at lower dose. Will see how this dose adjustment dose and add amlodipine if BPs seem like they can tolerate more antihypertensive - Decrease Metoprolol dose from 100mg daily to 25mg daily due to HR in the 60s and BPs down to 90 systolic. - plan to transition to amlodipine + dc HCTZ - Continue Lasix 20mg daily 4. Upper back muscle strain: XR T spine normal and CXR nml. work up for causes of back pain largely normal, suspect that this is related to muscular strain. Was given Flexeril 10mg once for this with some improvement as well as tylenol 975mg and a lidocaine patch. Pain significnatly improved this AM - continue Flexeril scheduled, tylenol and ibuprofen PRN 5. Leg swelling: previously noted by PCP and attributed to sedentary lifestyle and BMI + age, possible a component of HF based on CT as above. status is chronic and improved from previous per pt. Will continue to trend - continue lasix DVT ppx: SCDs, Charbel of 3 Code: partial code, ok with CPR, no intubation. POLST on file per pt
[2023-11-06 10:04] LABS: Alanine Aminotransferase 28 IU/L (<35); Albumin 3.6 g/dL (3.5-5.0); Alkaline Phosphatase 108 U/L (38-126); Aspartate Aminotransferase 40 IU/L (14-36); BUN Creatinine Ratio 34.6 (6-22); Bilirubin Total 2.3 mg/dL (0.2-1.3); Blood Urea Nitrogen 56 mg/dL (7-17); Calcium 9.6 mg/dL (8.4-10.2); Carbon Dioxide 25 mmol/L (22-32); Chloride 103 mmol/L (98-107); Estimated Glomerular Filt Rate 30 mL/min (>60); Globulin 3.7 g/dL (1.7-4.1); Glucose 156 mg/dL (80-110); HEMOLYSIS < 15 (0-50); Potassium 3.9 mmol/L (3.4-5.1); Sodium 135 mmol/L (137-145); Total Protein 7.3 g/dL (6.3-8.2)
--- NOTE | 2023-11-06 10:13 | CM.DANOTE ---
Initial DCP Assessment Note Reviewed EMR and team rounds for status updates. Went to meet with pt in the room, however she was sleeping at the time. Called pt's grandson, Ed Galaviz, to obtain pt hx and preferences for d/c. Payor: Medic[facility] PCP: Dr. Rosales Pt is a 88 year-old F who presented to the ED yesterday evening after experiencing a sudden onset, worsening upper back pain while out doing errends. Pt resides alone, her grandson drove her to the ED for further evaluation. ED provider felt that pt's upper back pain to be musculoskeletal in nature, however the ED workup showed incidental findings of R-sided heart failure and pulmonary edema w/worsening shortness of breath while still in the ED. [facility] was consulted and provided recommendations for tx/further workup. Pt was then placed in OBS bed for further monitoring and intervention, ECHO is pending, and pt was started on amlodipine for further cardiac management. DCP will continue to follow and assist with d/c needs identified for home discharge. Family will provide transport home once medically ready. Pt's healthcare DPOA is primarily her dtr, Clementine Monson, secondary is Ed Galaviz, her grandson. EMR updated with contact info. Discharge Planning/Care Management CM Discharge Assessment Start: 11/06/23 09:05 Freq: Status: Active Protocol: Document 11/06/23 09:05 DPL (Rec: 11/06/23 10:11 DPL [id number]) Discharge Planning Assessment Assigned Financial Director LOKESH Baker Advance Directives? Yes Advance Directives on File Yes History Provided By Patient,Family Member,Medical Record Expected Length of Stay 1 Has Patient been admitted in last 30 No days? Prior Living Arrangements House Household Members none Type of transporation used prior to Relies on Others admit Independent with ADL's Yes Is patient alert and oriented? Pt was sleeping at the time of this visit, however family says that she is. Caregiver for Another No Comment N/A Comment None Comment No anticipated home d/c needs identified at this time. Barriers to Discharge No Discharge Plan Home Referrals Initiated None needed Whiteboard Updated in Patient Room with Yes name and ext. # of Financial Director Review Status In Process Please Provide Date Initial DC 11/06/23 Assessment Was Performed
[2023-11-06 11:00] VITALS: BP 133/89; PULSE 74
[2023-11-06] MEDS: METOPROLOL ER 25 MG TABLET PO (11:00)
[2023-11-06] MEDS: MAGNESIUM OXIDE 400 MG TABLET PO (11:00)
[2023-11-06 12:00] VITALS: BP 133/89; PULSE 72; RESP 16; TEMP 36.3; O2SAT 94
[2023-11-06 14:43] VITALS: BP 138/87; PULSE 69; RESP 16; TEMP 36.4; O2SAT 94
--- NOTE | 2023-11-06 15:02 | PM.DS.1 ---
History of Present Illness History of Present Illness Date Patient Seen: 11/06/23 Time Patient Seen: 15:03 Chief complaint: upper back pain Narrative: 88 yo F with hx of CKD stage 3a, HTN and HLD presenting initially for upper back pain that started spontaneously yesterday while grocery shopping. Initially it felt like a muscle strain to her. There was no injury or trauma that she can remember. This has persisted since then. She has had similar pain in this spot before. No numbness. weakness, chest pain, abd pain. She has not had any chest pain or shortness of breath, her only complaint today is her back pain. In the ER option to discharge home was discussed vs admission for further work up and pt prefers admission. Cardiology was consulted and recommended admission for echo and transition to amlodipine for HTN. Discharge Providers Provider Date of admission: 11/05/23 12:55 Discharge Date: 11/06/23 Primary care physician: Steve Hall MD Discharge provider: Christiane Rosales MD Summary Hospital Course Hospital Course: 88 yo F with hx of CKD stage 3a, HTN and HLD presenting initially for upper back pain that started spontaneously yesterday while grocery shopping. Initially it felt like a muscle strain to her. There was no injury or trauma that she can remember. This has persisted since then. She has had similar pain in this spot before. No numbness. weakness, chest pain, abd pain. She has not had any chest pain or shortness of breath, her only complaint today is her back pain. In the ER option to discharge home was discussed vs admission for further work up and pt prefers admission. Cardiology was consulted and recommended admission for echo and transition to amlodipine for HTN. BPs were soft so Metoprolol dose was decreaesed and HCTZ was d/c'ed. Will plan to follow up and consider adidtion of additional agent based on BPs. Pt will continue to check BPS at home 1. CAD/carotid calcifications on CT: Echo showing right heart disfunction + severe tricuspid regurgitation -- Continue simvastatin 40mg daily -- Continue Lasix daily for sx management 2. Right heart failure/HRpEF: Echo showing right heart disfunction + severe tricuspid regurgitation, nml EF, severely reduced right ventricular systolic function and severe biatrial enlargement. Suspect this is 2/2 chronic hypertension > tricuspid regurg -> right heart failure - GFR 30, does not qualify for SGLT-2 or spironolactone based on this - Plan to dc home on lasix but will check CMP in 3 days to trend GFR - F/up with PCP in 3-4 days (Tue or of this week) - Discussed referral to cardiology with pt (for medical management of tricuspid regurd), she is open to this. Plan to refer outpt 3. HTN: Per cardiology recs, switch HCTZ to amlodipine. BPs soft overnight and this AM. Bp 123/90 this AM, so will restart Metoprolol but at lower dose. BPs in 130s with this, will increase Metoprolol to 50mg. - Metoprolol 50mg daily - s/s of hypotension reviewed, pt will contact PCP if sx arise - dc HCTZ - Continue Lasix 20mg daily for now -- COnsider addition of Spironolactone based on HFpEF in the future if renal function allows 4. Upper back muscle strain: XR T spine normal and CXR nml. work up for causes of back pain largely normal, suspect that this is related to muscular strain. Was given Flexeril 10mg once for this with some improvement as well as tylenol 975mg and a lidocaine patch. Pain resolved by time of discharge - continue Flexeril scheduled, tylenol and ibuprofen PRN 5. Leg swelling: likely related to heart failure. continue to treat with LAsix - continue lasix - Encourage compression stockings if tolerated and elevation of feet Status at Discharge Cognitive/behavioral status at discharge: oriented Functional status at discharge: independent ambulation Overall status at discharge: patient is back to baseline Time Spent with Patient Time spent: Greater than 30 minutes Exam Vital Signs (past 8 hours): - 11/06/23 08:00 11/06/23 11:00 11/06/23 12:00 Temperature 97.0 F L 97.4 F L Pulse Rate 68 74 72 Respiratory Rate 16 16 Blood Pressure 123/90 133/89 133/89 Pulse Oximetry 93 94 Oxygen Flow Rate 0 0 11/06/23 14:43 Temperature 97.6 F Pulse Rate 69 Respiratory Rate 16 Blood Pressure 138/87 Pulse Oximetry 94 Oxygen Flow Rate 0 Oxygen Delivery Method Room Air Oxygen Flow Rate 0 Narrative Exam Narrative: GEN: Healthy appearing, well-developed, NAD. Has difficulty hearing but when speaking loudly able to carry conversation without difficulty PSYCH: Good Judgment. AOx3. Normal memory, mood, and affect HEENT: -Head: NC/AT -Eyes: No discharge or redness -Nose: Normal nares. -Mouth and throat: MMM CV: warm and well perfused, RRR, soft murmur heard at LUSB LUNGS: CTAB, no w/r/c. ABD: Soft, NT/ND, NBS, no masses or organomegaly. SKIN: Warm, well perfused. No skin rashes or abnormal lesions MSK: Normal gait. No deformities EXT: No clubbing, cyanosis, or edema NEURO: Ambulating with no limitations. No focal deficits Objective Labs 11/05/23 09:20 11/06/23 09:40 Labs: Laboratory Results - last 24 hr 11/06/23 09:40 Sodium 135 L Potassium 3.9 Chloride 103 Carbon Dioxide 25 BUN 56 H Creatinine 1.62 H Estimated GFR 30 L BUN/Creatinine Ratio 34.6 H Glucose 156 H Calcium 9.6 Total Bilirubin 2.3 H AST 40 H ALT 28 Alkaline Phosphatase 108 Total Protein 7.3 Albumin 3.6 Globulin 3.7 Albumin/Globulin Ratio 1.0 [facility] Medical History Body mass index (BMI) of 40.0 to 44.9 in adult (11/21/17) Chronic renal failure, stage 3a Hearing loss Hyperlipidemia (11/22/11) Hypertension (11/22/11) Macular degeneration Osteopenia (11/22/11) Surgical History History of cataract removal with insertion of prosthetic lens (07/20/11) History of hip replacement (~2010) History of hip replacement (07/18/12) Status post hysterectomy Social History marital status: number of children: 4 household members: none lives independently: Yes caregiver/support person: No housing: house pets and animals: Yes education level: high school occupational status: other 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: [employer] travel history: over 6 months ago leisure activities: other Smoking Status: Never smoker Tobacco: How many years used: 0 quit status: quit date established second hand exposure: Yes (When first to .) alcohol intake: current substance use type: does not use Discharge Plan Discharge Plan Patient Disposition: Home Discharge orders & Medications Prescriptions: New cyclobenzaprine 10 mg Tablet 10 mg PO Q8HR PRN (Reason: Spasms) Qty: 30 0RF metoprolol succinate 50 mg capsule,sprinkle,ER 24hr 50 mg PO DAILY Qty: 60 0RF Continued multivitamin [Multiple Vitamins] 1 EACH tablet 1 tab PO QDAY Qty: 0 PreserVision AREDS-2 1 EACH capsule 1 tab PO Qty: 0 furosemide 20 mg tablet 20 mg PO DAILY Qty: 90 3RF potassium chloride 8 mEq tablet extended release 8 meq PO DAILY Qty: 90 3RF simvastatin [Zocor] 40 mg tablet 20 mg PO Q DAY Qty: 45 3RF Discontinued hydrochlorothiazide 50 mg tablet 50 mg PO DAILY Qty: 90 3RF metoprolol succinate 100 mg tablet extended release 24 hr 100 mg PO DAILY Qty: 90 3RF Follow up/Referrals: Steve Hall MD [Primary Care Provider] - Other Ambulatory Orders: Comprehensive Metabolic Panel (Routine) Timeframe: 3 Days Facility: [facility] - Location: Laboratory Ordered By: Christiane Rosales Visit Report/Discharge Packet Stand Alone Forms: Patient Portal/API, Stroke Signs & Symptoms Discharge Data Primary Care Provider: Steve Hall Attending Provider: Christiane Rosales Admit Date/Time: 11/05/23 12:55
--- NOTE | 2023-11-06 15:47 | PC.NURSE ---
Pt A&Ox4, VSS. Reviewed patient discharge packet with patient and family, both able to teach back independently. IV removed, pt tolerated well. Pt taken downstairs in wheelchair by JOLLY Rojas and discharged home with ride from family.
== END 2023-11-06 15:47 | disposition home or self-care (01) ==
LOC: ED 12:53 → AC 12:57
PROVIDERS: Admitting Provider Family Medicine; Emergency Provider Emergency Medicine; PCP Internal Medicine; Referring Provider Emergency Medicine; Visit Provider Family Medicine
DX: M54.6 Pain in thoracic spine (principal); I13.0 Hypertensive heart and chronic kidney disease with heart failure and stage 1 through stage 4 chronic kidney disease, or unspecified chronic kidney disease; I50.20 Unspecified systolic (congestive) heart failure; I25.10 Atherosclerotic heart disease of native coronary artery without angina pectoris; E78.2 Mixed hyperlipidemia
CPT/HCPCS: 36415; 71045; 71275; 72070; 74174; 76705; 80053; 83735; 84484; 85025; 93005; 93306; 96374; 99285; G0378; J1940; Q9967

== ENCOUNTER → 2023-11-10 11:02 | Outpatient (CLI) | payer MEDICARE, OTHER, SELFPAY ==
[2023-11-07 09:42] VITALS: BMI 31.8
[2023-11-10 12:14] LABS: BUN Creatinine Ratio 30.9 (6-22); Blood Urea Nitrogen 47 mg/dL (7-17); Calcium 9.9 mg/dL (8.4-10.2); Carbon Dioxide 30 mmol/L (22-32); Chloride 103 mmol/L (98-107); Estimated Glomerular Filt Rate 33 mL/min (>60); Glucose 84 mg/dL (80-110); HEMOLYSIS < 15 (0-50); Magnesium 1.8 mg/dL (1.6-2.3); Potassium 4.4 mmol/L (3.4-5.1); Sodium 141 mmol/L (137-145)
== END ==
PROVIDERS: PCP Internal Medicine; Referring Provider Internal Medicine; Visit Provider Internal Medicine
DX: I10 Essential (primary) hypertension (principal); N18.31 Chronic kidney disease, stage 3a; E83.42 Hypomagnesemia
CPT/HCPCS: 36415; 80048; 83735

== ENCOUNTER → 2024-01-10 11:03 | Outpatient (CLI) | payer MEDICARE, OTHER, SELFPAY ==
[2024-01-10 10:56] VITALS: BMI 31.8
[2024-01-10 11:57] LABS: BUN Creatinine Ratio 34.1 (6-22); Blood Urea Nitrogen 56 mg/dL (7-17); Calcium 10.1 mg/dL (8.4-10.2); Carbon Dioxide 25 mmol/L (22-32); Chloride 105 mmol/L (98-107); Estimated Glomerular Filt Rate 30 mL/min (>60); Glucose 78 mg/dL (80-110); HEMOLYSIS 19 (0-50); Potassium 4.5 mmol/L (3.4-5.1); Sodium 136 mmol/L (137-145)
== END ==
PROVIDERS: PCP Internal Medicine; Referring Provider Internal Medicine Cardiovascular Disease; Visit Provider Internal Medicine Cardiovascular Disease
DX: I50.810 Right heart failure, unspecified (principal)
CPT/HCPCS: 36415; 80048

== ENCOUNTER → 2024-02-24 10:14 | Outpatient (CLI) | payer MEDICARE, OTHER, SELFPAY ==
[2024-01-10 10:56] VITALS: BMI 31.8
[2024-02-24 12:03] LABS: BUN Creatinine Ratio 24.2 (6-22); Blood Urea Nitrogen 37 mg/dL (7-17); Calcium 9.2 mg/dL (8.4-10.2); Carbon Dioxide 24 mmol/L (22-32); Chloride 108 mmol/L (98-107); Estimated Glomerular Filt Rate 32 mL/min (>60); Glucose 125 mg/dL (80-110); HEMOLYSIS < 15 (0-50); Potassium 4.5 mmol/L (3.4-5.1); Sodium 139 mmol/L (137-145)
== END ==
PROVIDERS: PCP Internal Medicine; Referring Provider Internal Medicine Cardiovascular Disease; Visit Provider Internal Medicine Cardiovascular Disease
DX: I50.810 Right heart failure, unspecified (principal)
CPT/HCPCS: 36415; 80048

== ENCOUNTER → 2024-08-20 11:58 | Outpatient (CLI) | payer MEDICARE, OTHER, SELFPAY ==
[2024-01-10 10:56] VITALS: BMI 31.8
[2024-08-20 13:22] LABS: Alanine Aminotransferase 29 IU/L (<35); Albumin 4.1 g/dL (3.5-5.0); Albumin Globulin Ratio 1.4 (1.0-2.8); Alkaline Phosphatase 128 U/L (38-126); Aspartate Aminotransferase 39 IU/L (14-36); BUN Creatinine Ratio 29.8 (6-22); Blood Urea Nitrogen 57 mg/dL (7-17); Carbon Dioxide 24 mmol/L (22-32); Chloride 107 mmol/L (98-107); Estimated Glomerular Filt Rate 25 mL/min (>60); Globulin 2.9 g/dL (1.7-4.1); Glucose 105 mg/dL (80-110); HEMOLYSIS < 15 (0-50); Potassium 4.5 mmol/L (3.4-5.1); Sodium 139 mmol/L (137-145)
== END ==
PROVIDERS: PCP Internal Medicine; Referring Provider Internal Medicine; Visit Provider Internal Medicine
DX: R60.0 Localized edema (principal); N18.31 Chronic kidney disease, stage 3a
CPT/HCPCS: 36415; 80053